=== PATIENT | female | born 1985 | race Caucasian/White ===

== ENCOUNTER 2016-12-06 17:34 | Emergency (ER) | payer MEDICAID ==
[~2016-12-06] VITALS: Ht 165.1 cm; Wt 69.9 kg
[2016-12-06 18:10] VITALS: BP 124/90
[2016-12-06] MEDS ORDERED: KETOROLAC TROMETH 60MG/2ML VIAL IM ONE (18:45)
[2016-12-06] MEDS ORDERED: HYDROcodone-ACET 10/325MG TAB PO ONE (18:45)
== END 2016-12-06 19:30 | disposition home or self-care (01) ==
LOC: ER 17:44
DX: M54.9 Dorsalgia, unspecified (principal)
CPT/HCPCS: 96372; 99283; J1885

== ENCOUNTER 2023-07-18 06:49 | Emergency (ER) | payer MEDICAID ==
[~2023-07-18] VITALS: Ht 165.1 cm; Wt 61.4 kg
[2023-07-18 07:46] LABS: Basophils # (auto) 0 10 ^3/uL (0-0.2); Basophils % (auto) 0.4 % (0.0-2.0); Eosinophils # (auto) 0.1 10 ^3/uL (0-0.8); Eosinophils % (auto) 2.5 % (0.0-7.0); Hematocrit 40.2 % (36.0-46.0); Hemoglobin 13.6 g/dL (12.2-16.2); Lymphocytes # (auto) 0.6 10 ^3/uL (0.4-5.4); Lymphocytes % (auto) 10.3 % (10.0-50.0); Mean Corpuscular Hemoglobin 30.4 pg (28.0-32.0); Mean Corpuscular Hgb Conc. 33.8 g/dL (32.0-36.0); Monocytes # (auto) 0.3 10 ^3/uL (0-1.3); Monocytes % (auto) 4.7 % (0.0-12.0); Neutrophils # (auto) 4.9 10 ^3/uL (1.6-8.6); Neutrophils % (auto) 82.1 % (37.0-80.0); Red Blood Cells 4.47 10^6/uL (4.0-5.20); White Blood Cell 5.9 10^3/uL (4.4-10.8)
[2023-07-18] MEDS: ONDANSETRON HCL 4 MG/2 ML VIAL IV ONE (07:46)
[2023-07-18] MEDS: DICYCLOMINE HCL (10MG/ML) 2 ML AMPULE IM ONE (07:47)
[2023-07-18 07:52] VITALS: PULSE 81; RESP 18; O2SAT 100
[2023-07-18 08:02] LABS: Alanine Aminotransferase 52 U/L (7-40); Albumin 4.6 g/dL (3.2-4.8); Alkaline Phosphatase 101 U/L (46-116); Anion Gap 10 (5-15); Aspartate Aminotransferase 131 U/L (13-40); BUN/Creatinine Ratio 8.6 (10.0-20.0); Bilirubin, Direct 0.7 mg/dL (<0.3); Blood Urea Nitrogen 7 mg/dL (9-23); Calcium 9.4 mg/dL (8.5-10.1); Carbon Dioxide 22 mmol/L (20-30); Chloride 109 mmol/L (98-107); Glucose 91 mg/dL (74-106); Potassium 3.7 mmol/L (3.5-5.1); Sodium 141 mmol/L (136-145)
[2023-07-18 08:03] LABS: Bilirubin, Total 1.5 mg/dL (0.2-1.0); Total Protein 6.5 g/dL (5.7-8.2)
[2023-07-18 08:43] LABS: Lipase 47 U/L (12-53)
[2023-07-18 08:56] LABS: Urine Bacteria NONE SEEN /hpf (None Seen); Urine Blood Negative /uL (Negative); Urine Clarity HAZY (Clear); Urine Color Yellow (Yellow); Urine Hyaline Cast FEW /lpf (0 - 2); Urine Mucus FEW (None Seen); Urine Protein, UAD 1+ (Negative); Urine Specific Gravity 1.022 (1.001-1.035); Urine Urobilinogen Normal (Negative); Urine WBC 6 /hpf (0 - 5); Urine pH 7.5 (5.0-8.0)
[2023-07-18] MEDS ORDERED: NAPR-1334 PO (11:47)
[2023-07-18 12:11] VITALS: BP 119/72; PULSE 83; RESP 18; TEMP 98; O2SAT 100
== END 2023-07-18 12:12 | disposition home or self-care (01) ==
LOC: EDBD 06:49 → ER 06:49 → EDUNIT# 06:49 → ER 12:10
DX: K80.20 Calculus of gallbladder without cholecystitis without obstruction (principal); R10.2 Pelvic and perineal pain; N83.202 Unspecified ovarian cyst, left side
CPT/HCPCS: 36415; 74176; 76705; 76830; 76856; 80048; 80076; 81001; 83690; 84702; 85025; 93005; 96372; 96374; 99285; J0500; J2405